=== PATIENT | male | born 1995 | race Caucasian/White ===

== ENCOUNTER 2016-07-14 01:36 | Emergency (ER) | payer BC, OTHER ==
[~2016-07-14] VITALS: Ht 177.8 cm; Wt 73.1 kg
[2016-07-14] MEDS ORDERED: SODIUM CHLORIDE 0.9% 1000ML 1,000 ML IV STA (01:39)
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
[2016-07-14 02:00] VITALS: Ht 177.8 cm; Wt 73.1 kg
[2016-07-14 02:09] LABS: ISTAT CREATININE 1.1 mg/dl; ISTAT HEMOGLOBIN 15.6 g/dl (14.0-18.0); ISTAT IONIZED CALCIUM 1.14 mmol/l
[2016-07-14 02:14] LABS: HEMATOCRIT 42.2 % (42-52); MEAN CELL VOLUME 84.7 fL (80-100); MEAN CORPUSCULAR HEMOGLOBIN 30.3 pg (25-34); MEAN CORPUSCULAR HGB CONC 35.8 g/dl (32-36); MEAN PLATELET VOLUME 9.8 fL (7.4-10.4); PLATELET COUNT 322 K/uL (130-400); RED BLOOD COUNT 4.98 M/uL (4.7-6.1); WHITE BLOOD COUNT 15.83 K/uL (4.8-10.8)
[2016-07-14 02:21] LABS: ALT/SGPT 21 U/L (12-78); AST/SGOT 17 U/L (15-37); BLOOD UREA NITROGEN 15 mg/dl (7-18); BUN/CREATININE RATIO 15.8 (10-20); CALCIUM 8.4 mg/dl (8.5-10.1); CARBON DIOXIDE 28 mmol/L (21-32); CHLORIDE 100 mmol/L (98-107); CREATININE 0.92 mg/dl (0.60-1.40); GLUCOSE 176 mg/dl (70-99); POTASSIUM 2.9 mmol/L (3.5-5.1); SODIUM 138 mmol/L (136-145)
[2016-07-14 02:24] LABS: ALKALINE PHOSPHATASE 84 U/L (45-117); PARTIAL THROMBOPLASTIN RATIO 0.9; PROTHROMBIN TIME (PATIENT) 10.9 SECONDS (9.0-12.0)
[2016-07-14 02:38] VITALS: BP 127/72; PULSE 112; TEMP 36.8; O2SAT 99
[2016-07-14 02:57] LABS: BASO % 0.3 %; BASO ABS # 0.04 K/uL (0-0.2); COMPLETE YES; EOS % 0.4 %; IG% 0.3 %; LYMPH % 50.5 %; MONO % 6.3 %; NEUT % 42.2 %
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
--- NOTE | 2016-07-14 07:01 | DIAGNOSTIC IMAGING REPORT ---
CT OF THE CERVICAL SPINE CLINICAL HISTORY: Neck pain status post trauma COMPARISON STUDY: No previous studies for comparison. CT DOSE: TECHNIQUE: CT scan of the cervical spine was performed from the skull base to the thoracic inlet. Images are reviewed in the axial, sagittal, and coronal planes. IV contrast was not administered for this examination. FINDINGS: The visualized portions of the lung apices reveal no evidence of pneumothorax. The prevertebral soft tissues are normal. No fractures or subluxations are visualized. There is trace pneumocephalus. There is a right mastoid effusion. There is a right temporal bone fracture. There is a right-sided petrous fracture there is a probable fracture through the sphenoid sinus. There is a sphenoid sinus air-fluid level. IMPRESSION: 1. No evidence of acute cervical spine fracture or subluxation 2. Right petrous, mastoid, sphenoid, and temporal bone fractures. Trace pneumocephalus. Electronically signed by: Allen Shelton M.D. 07/14/2016 6:59 AM Dictated Date/Time: 07/14/2016 6:54 AM
--- NOTE | 2016-07-14 07:15 | DIAGNOSTIC IMAGING REPORT ---
HEAD CT NONCONTRAST CT DOSE: 1420.62 mGy.cm HISTORY: Head injury. TRAUMA TECHNIQUE: Multiaxial CT images of the head were performed without the use of intravenous contrast. Automated exposure control was utilized for this study. Comparison: None. Findings: Nondisplaced fracture through the right temporal bone extending into the mastoid air cells. There is partial opacification of the right mastoid air cells with trace pneumocephalus. The fracture extends medially into the skull base and across the posterior aspect of the sphenoid air cells. Right posterior scalp swelling. There is fluid/hemorrhage within the right maxillary sinus and right sphenoid sinus. There is also opacification of the left frontal sinus. Prominence of the retrocerebellar extra-axial space. The ventricles are normal in size. There is no mass, midline shift, or acute infarct. Tiny left frontal subdural hematoma. This measures a maximal thickness of 3 mm. Impression: 1. Nondisplaced skull base fracture involving the right temporal bone, right mastoid air cells, and extending medially through the posterior sphenoid sinuses. There is associated fluid/hemorrhage within the paranasal sinuses and right mastoid air cells. 2. Tiny left frontal subdural hematoma measuring maximal thickness of 3 mm. 3. Findings were discussed with Dr. Wagner at 7:12 AM on 07/14/2016. Electronically signed by: Mikhail Gonzalez M.D. 07/14/2016 7:13 AM Dictated Date/Time: 07/14/2016 7:06 AM
== END 2016-07-14 03:10 | disposition short-term general hospital (02) ==
LOC: EDBD 01:36 → C.ED 01:37
DX: S02.81XA Fracture of other specified skull and facial bones, right side, initial encounter for closed fracture (principal); S02.19XA Other fracture of base of skull, initial encounter for closed fracture; F10.129 Alcohol abuse with intoxication, unspecified; S06.5X9A Traumatic subdural hemorrhage with loss of consciousness of unspecified duration, initial encounter; R00.0 Tachycardia, unspecified; X58.XXXA Exposure to other specified factors, initial encounter